=== PATIENT | female | born 1940 | race Caucasian/White ===

== ENCOUNTER 2017-10-07 13:10 | Inpatient (IN) | payer MEDICARE, OTHER ==
[2017-10-07 14:14] LABS: Troponin I 0.619 ng/mL (< 0.028)
[2017-10-07] MEDS ORDERED: Enoxaparin Sodium 80 MG/0.8 ML SYRINGE ONE (14:43)
--- NOTE | 2017-10-07 15:34 | HP ---
PRIMARY CARE PHYSICIAN: Dr. Ruma Reina. REASON FOR ADMISSION: Transfer from [facility] for non-ST elevation [place]. HISTORY OF PRESENT ILLNESS: A 77-year-old female who has underlying history of diabetes type 2, hypertension, and dyslipidemia who presented to [facility] Emergency Room with complaint of left upper extremity pain. She describes dull aching pain in left arm, 3 x 10 in intensity. It started last night before going to bed. She was able to sleep well. She did not have any chest pain, palpitation, nausea, vomiting, diaphoresis or shortness of breath. When this morning she woke up, she was still feeling achy pain in left arm. It was significant enough that is why she was concerned about and decided to check out and that is why she went to [facility] where she had elevated troponin. Subsequently, second set of troponin was significantly abnormal. The patient had normal EKG and patient was given aspirin and nitro paste. Here in our emergency room, patient is receiving Lovenox 1 mg per kg. Patient denies any exertional related chest pain, palpitation, dizziness, syncope. She denies any orthopnea, PND or leg swelling. She denies any constipation, diarrhea, melena or hematochezia. She denies any abdominal pain. She denies any UTI symptoms. She denies any similar problem in past. She denies any headache or focal motor or sensory symptoms. REVIEW OF SYSTEMS: The following complete review of systems was negative, unless otherwise mentioned in the HPI or below: Constitutional: Weight loss or gain, ability to conduct usual activities. Skin: Rash, itching. Eyes: Double vision, pain. ENT/Mouth: Nose bleeding, neck stiffness, pain, tenderness. Cardiovascular: Palpitations, dyspnea on exertion, orthopnea. Respiratory: Shortness of breath, wheezing, cough, hemoptysis, fever or night sweats. Gastrointestinal: Poor appetite, abdominal pain, heartburn, nausea, vomiting, constipation, or diarrhea. Genitourinary: Urgency, frequency, dysuria, nocturia. Musculoskeletal: Pain, swelling. Neurologic/Psychiatric: Anxiety, depression. Allergy/Immunologic: Skin rash, bleeding tendency. Please see my HPI for pertinent positive and negative. All other review of systems reviewed and negative except as mentioned in the HPI. PAST MEDICAL HISTORY: Diabetes type 2, hypertension, dyslipidemia, and migraine headache. PAST SURGICAL HISTORY: Colonoscopy. PAST PSYCHIATRIC HISTORY: Reviewed and negative. SOCIAL HISTORY: Patient is . She denies any tobacco, alcohol or illicit drug abuse. She lives alone by herself. FAMILY HISTORY: No strong family history of premature coronary artery disease, stroke or cancer. EMERGENCY ROOM COURSE: Patient was given aspirin, nitropatch at [facility]. Patient is receiving Lovenox 1 mg per kg in our emergency room. ALLERGIES: No known drug allergy. CURRENT HOME MEDICATIONS: Aspirin 81 mg p.o. daily, lisinopril 10 mg p.o. daily , metformin 500 mg p.o. twice daily, and Zocor 20 mg p.o. at bedtime. PHYSICAL EXAMINATION: VITAL SIGNS: Currently, blood pressure 156/100, pulse 68, respiratory rate 20, temperature 97.9, saturation 96% on room air, and weight 69 kilograms. GENERAL: Patient is currently alert, awake, no obvious acute distress. HEAD: Normocephalic, atraumatic. EYES: Pupils round, reactive to light. Extraocular muscle intact. ENT: Oropharynx within normal limits. Moist mucous membrane, no oral lesion, no pharyngeal erythema, no exudate. NECK: Supple, no JVD, no thyromegaly, no carotid bruit, no jugular venous distention. LUNGS: Clear to auscultation without any rhonchi or rales. CARDIAC: S1 and S2 regular. Systolic murmur present parasternally as well as aortic area. No gallop, no rub. ABDOMEN: Soft, bowel sounds present, nontender, nondistended. No organomegaly , no mass, no suprapubic tenderness. BACK: Examination unremarkable, no CVA tenderness. EXTREMITIES: Upper extremity; passive movements of all joints are normal. Lower extremities: No edema, no calf tenderness. Good distal pulsation. SKIN: No skin rash. HEMATOLOGICAL SYSTEM: No lymphadenopathy. PSYCHIATRIC: Normal affect. NEUROLOGIC: The patient is alert and oriented x3. Cranial nerves II-XII intact. Motor and sensation within normal limits. Reflexes bilaterally symmetrical. Plantar bilateral flexor. IMAGING DATA AND SIGNIFICANT LABORATORY DATA: 1. EKG showing normal sinus rhythm with left atrial enlargement. 2. Chest x-ray done at [facility] consistent with normal. 3. Blood tests done at [facility] reviewed. Troponin 0.44. BNP 96 , BUN 13, glucose 171, creatinine 0.79. Sodium 136, potassium 4.3, chloride 102 , carbon dioxide 26, calcium 9.8. 4. LFT: AST 17, ALT 9, alkaline phosphatase 65, total protein 7.2, albumin 4.0. 5. CBC: WBC 7.3, hemoglobin 13.4, platelet 203. ASSESSMENT AND PLAN/IMPRESSION: 1. Non-ST elevation myocardial infarction. This patient has atypical presentation. She has arm pain and significantly worsening troponin. She has several risk factors for coronary artery disease including diabetes, hypertension as well as dyslipidemia. At this point, the patient will require admission. We will keep on telemetry floor. We will treat with aspirin, Plavix , Lovenox 1 mg per kg. Cardiology will be consulted. Echocardiography will be obtained, nitropatch q.8 hourly. We will check lipid profile for risk stratification. Add metoprolol tartrate 25 mg po BID. 2. Diabetes type 2. We will hold on metformin. Patient will be planned for cardiac catheterization tomorrow and that is why we will continue insulin as per sliding scale per protocol. Diabetic diet will be given tonight and tomorrow morning we will keep her n.p.o. 3. Dyslipidemia. Continue Zocor 20 mg p.o. at bedtime and check lipid profile for risk stratification. 4. Hypertension. Continue lisinopril 10 mg p.o. daily. 5. Deep venous thrombosis prophylaxis. Patient is already on full dose of Lovenox therapy. 6. Gastrointestinal prophylaxis, Pepcid 20 mg p.o. b.i.d. 7. Code status: The patient is FULL CODE. Patient does not have any surrogate decision maker. 8. Murmur: we will get echo to see any structural or functional problem. Disposition plan based on clinical course. We are expecting patient's stay in hospital more than 2 midnights. Plan of care discussed with the patient in detail. GLORYD
[2017-10-07] MEDS ORDERED: Artificial Tear Sol 15 ML BOT EA EYE PRN (15:38)
[2017-10-07] MEDS ORDERED: Zolpidem Tartrate 5 MG TAB PO PRN (15:38)
[2017-10-07] MEDS ORDERED: Acetaminophen 325 MG TAB PO PRN (15:38)
[2017-10-07] MEDS ORDERED: HumaLOG 300 UNITS/3 ML VIAL SC PRN (15:38)
[2017-10-07] MEDS ORDERED: Eucerin (Mineral Oil/Petrolatum,White) 30 gm Jar TOP PRN (15:38)
[2017-10-07] MEDS ORDERED: Ondansetron HCl/PF 4 MG/2 ML Vial IVP PRN (15:38)
[2017-10-07] MEDS ORDERED: Loratadine 10 MG TAB PO PRN (15:38)
[2017-10-07] MEDS ORDERED: Sodium Chloride 0.65% Nasal 44 ML BOT EA NARE PRN (15:38)
[2017-10-07] MEDS ORDERED: Nitroglycerin 0.4 MG TAB (25 Tab Bottle) PO PRN (15:38)
[2017-10-07] MEDS ORDERED: Chloraseptic Spray 180 ml Bottle PO PRN (15:38)
[2017-10-07] MEDS ORDERED: Mag-Al 1200 mg/1200 mg/30 ML UDCUP PO PRN (15:38)
[2017-10-07] MEDS ORDERED: Dextrose 50% Abboject 50 ML SYRINGE SLOW IVP PRN (15:38)
[2017-10-07] MEDS ORDERED: hydrALAZINE 20 MG/ML VIAL SLOW IVP PRN (15:38)
[2017-10-07] MEDS ORDERED: Loperamide HCl 2 MG CAP PO PRN (15:38)
[2017-10-07] MEDS ORDERED: Senokot 8.6 MG TAB PO PRN (15:38)
[2017-10-07] MEDS ORDERED: Diabetic Tussin 200 MG/10 ML UDCUP PO PRN (15:38)
[2017-10-07] MEDS ORDERED: Dextrose 5% in Water 1,000 ML IV PRN (15:38)
[2017-10-07] MEDS ORDERED: HYDROcodone/Acetaminophen 5/325 mg Tablet PO PRN (15:38)
[2017-10-07] MEDS ORDERED: Milk Of Magnesia 30 ML UDCUP PO PRN (15:38)
[2017-10-07] MEDS ORDERED: Ondansetron ODT 4 MG TAB PO PRN (15:38)
[2017-10-07] MEDS: HumaLOG 300 UNITS/3 ML VIAL SC PRN (16:42)
[2017-10-07 16:57] LABS: Troponin I 0.996 ng/mL (< 0.028)
[2017-10-07 17:13] LABS: Bilirubin Negative (Negative); Blood, Urine Moderate (Negative); Clarity CLOUDY (Clear); Glucose, Urine (Dipstick) Negative (Negative); Leukocyte Trace (Negative); Nitrite Negative (Negative); Protein, Urine (Dipstick) Trace mg/dL (Neg-Trace); Specific Gravity, Urine 1.018 (1.002-1.036); Urobilinogen 0.2 mg/dL (0.2-1.0); pH, Urine 5.5 (5.0-9.0)
[2017-10-07 17:16] LABS: Bacteria/HPF 4+ HPF (None Seen); Hyaline Casts/LPF 0-3 HYALINE CAST LPF (0-3 Hyaline); Pathc Cast-AUWi Flag 0.29 (0-2.49); Squamous Epithelial 0-3 HPF (0-3)
[2017-10-07] MEDS ORDERED: Communication Order-Pharmacy FS SCH (18:00)
[2017-10-07 18:06] LABS: Anion Gap 17 mmol/L (10-20); BUN (Urea Nitrogen) 13 mg/dL (9.8-20.1); Calc. Creatinine Clearance 64 mL/min (70-130); Calcium 9.9 mg/dL (7.8-10.44); Carbon Dioxide 20 mmol/L (23-31); Chloride 101 mmol/L (98-107); Estimated GFR-MDRD 73; Glucose 187 mg/dL (83-110); Potassium 4.3 mmol/L (3.5-5.1); Sodium 134 mmol/L (136-145)
[2017-10-07] MEDS: Famotidine 20 MG TAB PO SCH (20:33)
[2017-10-07] MEDS: Atorvastatin Calcium 10 MG TAB PO SCH (20:34)
[2017-10-07] MEDS: Metoprolol Tartrate 25 MG TAB PO SCH (20:34)
[2017-10-07 20:45] LABS: Troponin I 1.403 ng/mL (< 0.028)
[2017-10-07] MEDS ORDERED: Enoxaparin Sodium 80 MG/0.8 ML SYRINGE SC SCH (21:00)
[2017-10-07] MEDS ORDERED: Prevnar 13-Val Conj/PF 0.5 ML SYRINGE IM ONE (21:00)
[2017-10-07] MEDS: Nitroglycerin 2% Ointment 1 INCH/1 GM Packet TOP SCH (23:00)
--- NOTE | 2017-10-08 00:31 | CON ---
DATE OF CONSULTATION: 10/07/2017 DATE OF ADMISSION: 10/07/2017 INDICATION FOR CONSULTATION: This is a 77-year-old female who has abnormal cardiac enzymes. She has had some difficulties recently with some left arm achiness. She awoke early this morning or last ni ght after having pain 3/10 with some left arm pain. She lives alone and states she needs to get it c hecked out at the hospital, so she presented to the emergency room and workup indicates that she had a troponin I of 0.44 and is now increased all the way to 0.996. Her BNP was 96. She has no previous cardiac history that she is aware of. She does have hypertension, hypercholesterolemia, and diabete s; however, for risk factors, she has had similar pains in the last 6 months, so they always occur at night. They are not associated with activity. PAST MEDICAL HISTORY: Significant for ischemic colitis as well as hypertension, hypercholesterolemia , and diabetes. SOCIAL HISTORY: She is a . She has 2 children, 2 male children that are alive and well without cardiac problems. She has no alcohol or tobacco abuse. She lives alone. FAMILY HISTORY: Noncontributory. MEDICATIONS AT HOME: Included aspirin, lisinopril 10 mg a day, metformin 500 mg b.i.d., and Zocor 20 mg a day. In the hospital, she was given aspirin, nitroglycerin, and Lovenox. ALLERGIES: None. REVIEW OF SYSTEMS: She wears glasses, has headaches, has some dysphagia. Otherwise, 12-point review of systems unremarkable except what was noted in the history of present illness. PHYSICAL EXAMINATION: GENERAL: Reveals a well-developed, well-nourished female. VITAL SIGNS: Blood pressure 160/72, heart rate is 62 and regular. She is afebrile, respiratory rate 16. HEENT: Shows the head to be normocephalic and atraumatic. Carotid pulses are present. There were n o bruits. There is no JVD. The thyroid is not enlarged. Oral mucosa was pink and moist. CHEST: Clear to auscultation. There were no rales, rhonchi or wheezing. CARDIOVASCULAR: Exam reveals a regular rate and rhythm, normal S1, S2. There is no S3, S4. There w ere no significant murmurs, heaves, thrills, bruits or rubs. ABDOMEN: Soft and nontender with positive bowel sounds. No organomegaly or masses are noted. Femor al pulses are present. EXTREMITIES: Show no clubbing, cyanosis or edema. Pedal pulses are present. Extremities otherwise are unremarkable. SKIN: Warm and dry. DATABASE: Her EKG shows a normal sinus rhythm, no acute changes, but she does have some peaking of t he T waves. LABORATORY DATA: As noted above. Her creatinine is 0.85. Hemoglobin was 13.4. IMPRESSION: 1. Non-ST segment elevation myocardial infarction with slight elevation of cardiac enzymes with some risk factors of coronary artery disease and certainly an atypical presentation with pain only at res t. We will plan for cardiac catheterization tomorrow. I did explain the procedure and risks to her to include bleeding, infection, possibly a myocardial infarction, cerebrovascular accident, renal ins ufficiency, allergic contrast reaction, and the possibility of . She understands and agrees to proceed. We will plan for cardiac catheterization tomorrow. 2. Diabetes, will be dealt with by the primary care service, appears to be under good control at thi s time. 3. Hypertension. This is slightly elevated. We will address the medications and to control this. 4. Hypercholesterolemia. Would continue her Zocor at this time. Otherwise, she is stable at this t josé and there is no indication that we need to proceed with urgent cardiac catheterization. She is c omfortable and has no discomfort at this time.
[2017-10-08] MEDS: Metoprolol Tartrate 25 MG TAB PO SCH ×2 (05:40→22:30)
[2017-10-08] MEDS: Lisinopril 10 MG TAB PO SCH (05:40)
[2017-10-08] MEDS: Famotidine 20 MG TAB PO SCH ×2 (05:41→22:30)
[2017-10-08] MEDS: Nitroglycerin 2% Ointment 1 INCH/1 GM Packet TOP SCH ×3 (05:45→22:34)
[2017-10-08 06:40] LABS: #Basophils 0.1 thou/uL (0.0-0.2); #Eosinphils 0.1 thou/uL (0.0-0.7); #Lymphocytes 1.2 thou/uL (1.20-3.40); #Monocytes 0.6 thou/uL (0.11-0.59); #Neutrophils 6.3 thou/uL (1.40-6.50); %Basophils 0.8 % (0.0-1.0); %Eosinophils 1.4 % (0.0-10.0); %Lymphocytes 14.2 % (21.0-51.0); %Monocytes 6.9 % (0.0-10.0); %Neutrophils 76.7 % (42.0-75.0); Hemoglobin 13.7 g/dL (12.0-16.0); Mean Corpuscular HGB CONC 35.7 g/dL (32.0-36.0); Mean Corpuscular Hemoglobin 32.8 pg (27.0-31.0); Mean Corpuscular Volume 92.1 fl (81.0-99.0); Mean Platelet Volume 8.4 fL (7.4-10.4); Platelet Count 204 thou/uL (130-400); RBC Distribution Width 11.8 % (11.5-14.5); Red Blood Cell (RBC) Count 4.17 mill/uL (4.20-5.40); White Blood Cell (WBC) Count 8.2 thou/uL (4.8-10.8)
[2017-10-08] MEDS ORDERED: cefTRIAXone\\ROCEPHIN 1 GM in Sodium Chloride 0.9% 100 ML IVPB SCH (06:45)
[2017-10-08 06:52] LABS: ALT (SGPT) 7 U/L (8-55); AST (SGOT) 28 U/L (5-34); Albumin 3.9 g/dL (3.4-4.8); Alkaline Phosphatase 63 U/L (40-150); Anion Gap 15 mmol/L (10-20); BUN (Urea Nitrogen) 14 mg/dL (9.8-20.1); Bilirubin, Total 0.6 mg/dL (0.2-1.2); Calc. Creatinine Clearance 65 mL/min (70-130); Calcium 9.7 mg/dL (7.8-10.44); Carbon Dioxide 21 mmol/L (23-31); Cardiac Risk 5.9 (Less than 4.5); Chloride 103 mmol/L (98-107); Cholesterol 212 mg/dl (< 200 Desired); Estimated GFR-MDRD 68; Glucose 176 mg/dL (83-110); HDL Cholesterol 36 mg/dL (>60 Neg Risk); LDL Cholesterol, Calculated 139 mg/dL; Potassium 4.1 mmol/L (3.5-5.1); Protein, Total 6.9 g/dL (6.0-8.3); Sodium 135 mmol/L (136-145); Triglycerides 184 mg/dL (Less than 150)
[2017-10-08] MEDS: cefTRIAXone\\ROCEPHIN 1 GM, Syringe 0.4 ML in Sterile Water 9.6 ML SLOW IVP SCH (08:00)
[2017-10-08] MEDS ORDERED: Clopidogrel Bisulfate 75 MG TAB PO SCH (09:00)
[2017-10-08] MEDS ORDERED: Aspirin 325 MG TAB PO SCH (09:00)
[2017-10-08] MEDS ORDERED: Lidocaine 1% (PF) 30 ML VIAL ONE (09:53)
[2017-10-08] MEDS ORDERED: Nitroglycerin 100MG/250ML BOT 250 ML ONE (10:06)
[2017-10-08] MEDS ORDERED: Verapamil 5 MG/2 ML VIAL ONE (10:06)
[2017-10-08] MEDS ORDERED: Heparin 10,000 UNITS/1 ML VIAL ONE (10:06)
[2017-10-08] MEDS ORDERED: Midazolam HCl 2 mg/2 ml Vial ONE (10:27)
[2017-10-08] MEDS ORDERED: Sodium Chloride 0.9% 200 ML IV SCH (11:25)
[2017-10-08] MEDS ORDERED: Nitroglycerin 0.4 MG TAB (25 Tab Bottle) SL PRN (11:25)
[2017-10-08] MEDS ORDERED: Acetaminophen/Codeine 30-300mg Tablet PO PRN ×2 (11:25)
[2017-10-08] MEDS ORDERED: traMADol HCl 50 MG TAB PO PRN (11:25)
[2017-10-08] MEDS ORDERED: Iopamidol 370 76% 100 ML VIAL ONE (11:35)
--- NOTE | 2017-10-08 13:27 | PDOC.PN ---
- Subjective Encounter Start Date: 10/08/17 Encounter Start Time: 13:25 -: old records requested/rev Patient seen and examined for NSTEMI. No new complaints. Noted overnight events - Objective Resuscitation Status: Resuscitation Status FULL:Full Resuscitation MAR Reviewed: Yes Vital Signs & Weight: Vital Signs (12 hours) Temp Pulse Resp BP BP Pulse Ox 10/08/17 12:52 99 191/80 H 10/08/17 08:00 98.0 F 99 22 H 161/85 H 99 10/08/17 05:40 163/71 H 10/08/17 04:00 98.1 F 60 16 163/71 H 96 Weight Weight 160 lb I&O: 10/07/17 10/08/17 10/09/17 06:59 06:59 06:59 Intake Total 480 Output Total 150 Balance 330 Result Diagrams: 10/08/17 06:25 10/08/17 06:25 Additional Labs: Accuchecks 10/08/17 10/07/17 10/07/17 06:22 22:48 16:19 POC Glucose 173 H 198 H 187 H Radiology Reviewed by me: Yes EKG Reviewed by me: Yes (nsr) Phys Exam - Physical Examination Constitutional: NAD HEENT: PERRLA, moist MMs, sclera anicteric Neck: no JVD, supple Respiratory: no wheezing, no rales, no rhonchi Cardiovascular: RRR, no rub SM+ Gastrointestinal: soft, non-tender, no distention, positive bowel sounds Musculoskeletal: no edema, pulses present Neurological: non-focal, normal sensation, moves all 4 limbs Psychiatric: normal affect, A&O x 3 Skin: no rash, normal turgor Dx/Plan (1) NSTEMI (non-ST elevated myocardial infarction) Code(s): I21.4 - NON-ST ELEVATION (NSTEMI) MYOCARDIAL INFARCTION Status: Acute (2) UTI (urinary tract infection) Status: Acute (3) Diabetes type 2, controlled Code(s): E11.9 - TYPE 2 DIABETES MELLITUS WITHOUT COMPLICATIONS Status: Chronic (4) Dyslipidemia Code(s): E78.5 - HYPERLIPIDEMIA, UNSPECIFIED Status: Chronic (5) Hypertension Code(s): I10 - ESSENTIAL (PRIMARY) HYPERTENSION Status: Chronic - Plan cont current plan of care, continue antibiotics * s/p cardiac cath * echo pending * continue current optimum medical therapy * she will need CABG * pt will decide today * rocephin started for UTI * send urine culture * medication reviewed as below * symptomatic treatment. Review of Systems - Review of Systems Eyes: negative: Pain, Vision Change, Conjunctivae Inflammation, Eyelid Inflammation, Redness, Other ENT: negative: Ear Pain, Ear Discharge, Nose Pain, Nose Discharge, Nose Congestion, Mouth Pain, Mouth Swelling, Throat Pain, Throat Swelling, Other Respiratory: negative: Cough, Dry, Shortness of Breath, Hemoptysis, SOB with Excertion, Pleuritic Pain, Sputum, Wheezing Cardiovascular: negative: chest pain, palpitations, orthopnea, paroxysmal nocturnal dyspnea, edema, light headedness, other Gastrointestinal: negative: Nausea, Vomiting, Abdominal Pain, Diarrhea, Constipation, Melena, Hematochezia, Other Genitourinary: negative: Dysuria, Frequency, Incontinence, Hematuria, Retention , Other Musculoskeletal: negative: Neck Pain, Shoulder Pain, Arm Pain, Back Pain, Hand Pain, Leg Pain, Foot Pain, Other Skin: negative: Rash, Lesions, Barber, Bruising, Other - Medications/Allergies Allergies/Adverse Reactions: Allergies Allergy/AdvReac Type Severity Reaction Status Date / Time No Known Drug Allergies Allergy Verified 10/07/17 16:09 Medications: Current Medications Acetaminophen (Tylenol) 650 mg PO Q4H PRN PRN Reason: Headache/Fever or Pain Acetaminophen/Codeine Phosphate (Tylenol #3) 1 tab PO Q4H PRN PRN Reason: Mild Pain (1-3) Acetaminophen/Codeine Phosphate (Tylenol #3) 2 tab PO Q4H PRN PRN Reason: Moderate Pain (4-6) Hydrocodone Bitart/Acetaminophen ([place] 5/325) 1 tab PO Q4H PRN PRN Reason: Moderate Pain (4-6) Al Hydroxide/Mg Hydroxide (Maalox) 30 ml PO Q6H PRN PRN Reason: Heartburn or Indigestion Artificial Tears (Tears Renewed 15ml Bottle) 0 drop EA EYE PRN PRN PRN Reason: Dry Eyes Aspirin (Aspirin) 325 mg PO DAILY [facility] Last Admin: 10/08/17 05:40 Dose: 325 mg Atorvastatin Calcium (Lipitor) 10 mg PO HS KAMRYN Last Admin: 10/07/17 20:34 Dose: 10 mg Dextrose/Water (Dextrose 50%) 25 gm SLOW IVP PRN PRN PRN Reason: Hypoglycemia Famotidine (Pepcid) 20 mg PO BID [facility] Last Admin: 10/08/17 05:41 Dose: 20 mg Glucagon (Glucagon) 1 mg IM PRN PRN PRN Reason: Hypoglycemia Guaifenesin (Robitussin Sf) 200 mg PO Q4H PRN PRN Reason: Cough Hydralazine HCl (Apresoline) 10 mg SLOW IVP Q4H PRN PRN Reason: Systolic BP > 180 Last Admin: 10/08/17 12:52 Dose: 10 mg Dextrose/Water (D5w) 1,000 mls @ 0 mls/hr IV .Q0M PRN; As Directed PRN Reason: Hypoglycemia Ceftriaxone Sodium 1 gm/ (Syringe 0.4 ml/ Sterile Water) 10 mls @ 120 mls/hr SLOW IVP 0800 [facility] Last Admin: 10/08/17 08:00 Dose: 10 mls Sodium Chloride (Normal Saline 0.9%) 200 mls @ 0 mls/hr IV ONE [facility] PRN Reason: As Directed Stop: 10/09/17 11:26 Insulin Human Lispro (Humalog) 0 units SC .MODERATE SLIDING SC PRN PRN Reason: Moderate Correctional Scale Last Admin: 10/07/17 16:42 Dose: 2 unit Insulin Human Lispro (Humalog) 0 units SC .BEDTIME SLIDING SC PRN PRN Reason: Bedtime Correctional Scale Lisinopril (Zestril) 10 mg PO DAILY [facility] Last Admin: 10/08/17 05:40 Dose: 10 mg Loperamide HCl (Imodium) 2 mg PO PRN PRN PRN Reason: Diarrhea/Loose Stools Loratadine (Claritin) 10 mg PO DAILYPRN PRN PRN Reason: Sinus Symptoms Magnesium Hydroxide (Milk Of Magnesium) 30 ml PO DAILYPRN PRN PRN Reason: Constipation Metoprolol Tartrate (Lopressor) 25 mg PO BID [facility] Last Admin: 10/08/17 05:40 Dose: 25 mg Mineral Oil/White Petrolatum (Eucerin Cream) 0 gm TOP BIDPRN PRN PRN Reason: Dry Skin Nitroglycerin (Nitro-Bid 2% Ointment) 0.5 inch TOP Q8HR [facility] Last Admin: 10/08/17 12:53 Dose: 0.5 inch Nitroglycerin (Nitrostat) 0.4 mg PO Q5MIN PRN PRN Reason: Chest Pain Nitroglycerin (Nitrostat) 0.4 mg SL Q5MIN PRN PRN Reason: Chest Pain Ondansetron HCl (Zofran Odt) 4 mg PO Q6H PRN PRN Reason: Nausea/Vomiting Ondansetron HCl (Zofran) 4 mg IVP Q6H PRN PRN Reason: Nausea/Vomiting Phenol (Chloraseptic [place] 180 Ml Bot) 0 ml PO PRN PRN PRN Reason: Sore Throat Senna (Senokot) 2 tab PO HSPRN PRN PRN Reason: Constipation Sodium Chloride ([place] Nasal [place] 0.65%) 0 ml EA NARE QIDPRN PRN PRN Reason: Nasal Congestion Tramadol HCl (Ultram) 50 mg PO Q6H PRN PRN Reason: Moderate Pain (4-6) Zolpidem Tartrate (Ambien) 5 mg PO HSPRN PRN PRN Reason: Insomnia
--- NOTE | 2017-10-08 15:09 | RAD ---
PORTABLE CHEST 1 VIEW: Date: 10/08/17 Time: 1345 hours HISTORY: Preoperative evaluation for CABG. Coronary artery disease. FINDINGS: The heart size is normal. The aorta is tortuous. The lungs are expanded without focal areas of consol idation, pneumothorax, or pleural effusions. IMPRESSION: No radiographic evidence of acute cardiopulmonary process. POS: [facility]
--- NOTE | 2017-10-08 16:39 | CT ---
CT OF THE BRAIN WITHOUT CONTRAST 10/08/17 HISTORY: Stroke alert, left sided weakness, slurred speech. Patient had heart cath today. FINDINGS: No evidence of acute infarct, hemorrhage, midline shift or abnormal extra-axial fluid collections are seen. There is an old lacunar infarct in the right basal ganglia. There are patchy areas of diffuse attenuation in the periventricular white matter consistent with chronic small vessel ischemic disease . The bony calvarium is intact. There is mucosal disease in the left maxillary sinus. IMPRESSION: No CT evidence of acute intracranial process. Findings are reported over the telephone to Dr. Juventino Figueroa at 4:23 p.m. POS: [facility]
[2017-10-08 16:49] LABS: INR-International Normal Ratio 1.1; PTT 30.6 SEC (22.9-36.1)
--- NOTE | 2017-10-08 17:05 | CT ---
CTA OF THE HEAD WITH IV CONTRAST AND 3D REFORMATTED IMAGING CTA OF THE NECK UTILIZING IV CONTRAST AND 3D REFORMATTED IMAGING 10/08/17 COMPARISON: CT of the brain without contrast dated 10/08/17. INDICATION: History of stroke protocol stroke alert for left sided weakness and slurred speech with a history of a heart cath this morning at 11 a.m. FINDINGS: CTA OF THE NECK: There is mild vascular calcifications involving the origins of the great vessels of the neck. The right common carotid artery appears widely patent. There is some mild vascular calcifications inv olving the right carotid bulb. The right internal carotid artery appears patent throughout its cervic al course. There is some mild atherosclerotic irregularity seen involving the precavernous and cavern ous right ICA. The supraclinoid ICA is patent. The left common carotid artery origin are widely patent. There are moderate calcifications involving the left carotid bulb and proximal left internal carotid artery with moderate stenosis. There is 50% luminal caliber narrowing involving the proximal left ICA. The remaining cervical course of the left ICA is widely patent. The petrous, precavernous, cavernous and supraclinoid segments of the left ICA are patent. The left vertebral artery is diminutive throughout its entire course. The right vertebral artery is w idely patent at this origin through its cervical course. The right vertebral artery intracranial cour se is widely patent. The visualized aerodigestive tract appears within normal limits. The thyroid, submandibular, and paro tid glands appear within normal limits. The visualized lung apices appear clear. There is scattered degenerative and osteoarthritic change. 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 There is mucosal thickening within the left maxillary sinus. CTA OF THE HEAD: No hemodynamically significant stenosis, occlusion, or aneurysmal dilatation seen involving the VAL, MCA and u.s. commissioner. Left vertebral artery is diminutive. There are mild vascular calcifications involving t he cavernous carotids bilaterally. No abnormal enhancement is evident. No midline shift is demonstrat ed. IMPRESSION: 1. No hemodynamically significant stenosis, occlusion or aneurysmal formation demonstrated. Findings were called to Dr. Figueroa at 4:45 p.m. on 10/08/17. 2. Moderate luminal caliber narrowing involving the proximal left internal carotid artery. 3. 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 POS: [facility]
[2017-10-08 17:36] LABS: CKMB 6.8 ng/mL (0-6.6); Troponin I 1.371 ng/mL (< 0.028)
--- NOTE | 2017-10-08 18:17 | PRG ---
DATE OF SERVICE: 10/08/2017 CRITICAL CARE PROGRESS NOTE SUBJECTIVE: This patient was admitted yesterday for non-ST elevation [place]. The patient was treated medically and her last dose of Lovenox was last night. This morning, the patient had a cardiac catheterization through right radial approach and the patient was found with 3-vessel CAD. I saw this patient early in the morning and subsequently another time at 2:00 p.m., I saw this patient; at that time, patient was perfectly fine before and after immediately cardiac catheterization. Patient's family member, [id number] visited her at that time, she also noticed that she was perfectly fine at 3:45 p.m. but immediately after the patient's condition deteriorated, she was having difficulty speaking. Her right side of face had asymmetry and she acutely got confused and she was having predominantly on the right-sided weakness. CECILIA NILS was called immediately. I attended this patient at bedside and examined. Neuro examination was done. It was noted that her NIH score was about 10. The patient was having difficulty talking and patient appeared confused with right- sided weakness. Her blood sugar was normal. OBJECTIVE: VITAL SIGNS: Temperature 98.0, pulse 77, respiratory rate 18, saturation 100% on room air, blood pressure 117/59, weight 160 pounds. GENERAL: The patient is confused. She has a facial drooping on the right side. She has more weakness on the right side. HEAD: Normocephalic, atraumatic. EYES: Pupils round, reactive to light. ENT: Oropharynx within normal limits. NECK: Supple. No JVD, no thyromegaly, no carotid bruit. LUNGS: Clear to auscultation without any rhonchi or rales. CARDIAC: S1, S2 appears regular with a soft systolic murmur noted, no gallop, no rub. ABDOMEN: Soft and benign without any tenderness. EXTREMITIES: No edema. NEUROLOGIC: The patient is confused. She does have right-sided weakness. She does have facial drooping on the right side. She does have expressive aphasia. Her NIH score is 10. Lab and radiological investigation reviewed. ASSESSMENT AND PLAN: 1. Acute cerebrovascular accident. The patient does have acute CVA, suspecting embolic phenomena versus ischemic. At this point, we have discontinued nitro patch given relatively low blood pressure. We did immediately CT brain and CT brain came back negative. I spoke with Dr. Wooten and reported as normal. Subsequently, we decided to do CT lower [place] angiography and that also reported as normal without any major blood vessel occlusion or stenosis. I spoke with Dr. Gregory about TPA indication and this patient was meeting criteria for TPA. Right radial approach cardiac catheterization was not absolute contraindication, but we need to monitor very closely. I also spoke with Dr. Srivastava and altogether, we decided to go for TPA. Advantage and disadvantage of TPA discussed. We will transfer her to CCU. Post- TPA orders initiated. The patient will be closely monitored in CCU. We will hold on aspirin and other antiplatelet or anticoagulant therapy for 24 hours after TPA. We will closely monitor neurologically and will consult stroke team including Neurology. Tomorrow, we will repeat MRI brain, carotid Doppler. I spoke with the patient's family member, [id number] and updated about condition. 2. Coronary artery disease. The patient is found with a 3-vessel coronary artery disease. Cardiovascular surgeon was consulted. The patient is thinking about going for coronary artery bypass grafting. At this point given acute neurological insult, we will defer the decision to the surgeon as well as Neurology and primary cap cutter. 3. Hypertension. 3. Diabetes. All problems are currently stable. Total time spent providing critical care to this patient is more than 30 minutes including discussion with him various consultants and family members and examination of this patient. TRUDY
[2017-10-08] MEDS ORDERED: Lorazepam 2 MG/ML VIAL SLOW IVP PRN (19:34)
[2017-10-08] MEDS ORDERED: ISOVUE-370 76%-LOCM 1 ML ONE (20:21)
--- NOTE | 2017-10-08 20:53 | CT ---
BRAIN CT WITHOUT IV CONTRAST: 10/08/17 HISTORY: 77-year-old female with history of post TPA for stroke. There is a 0.6 cm diameter small intraparenchymal hemorrhagic focus in the right basal ganglia. There is some residual contrast within the vasculature of the brain. There are some very tiny punctate foc i of increased density in the right and left posterior parietal cortical regions. I am not certain wh ether these represent some tiny areas of enhancement or whether these could represent some tiny hemor rhagic foci as well. There is certainly no mass or midline shift. No extra-axial hemorrhage. IMPRESSION: Definite small intraparenchymal hemorrhage in the right basal ganglia without significant mass effect . Several bilateral tiny cortical foci of minimal increased attenuation density, these are less certa in in origin and could potentially represent tiny hemorrhagic foci or could represent some tiny areas of enhancement. Followup brain CTs and consider followup brain MRI as well. This was discussed with Jason, the patient's nurse at 8:13 p.m. Susu LOMAX POS: LEW
--- NOTE | 2017-10-08 21:33 | CON ---
DATE OF CONSULTATION: 10/08/2017 DATE OF ADMISSION: 10/07/2017 ATTENDING PHYSICIAN: Socorro Srivastava MD CONSULTING PHYSICIAN: Socorro Srivastava MD REASON FOR CONSULTATION: Evaluate the patient for coronary artery bypass grafting. HISTORY OF PRESENT ILLNESS: Ms. Alvarez is a 77-year-old woman who was admitted with [id number] myocardial infarction. She has no previous cardiac history. She has no history of aneurysm or cereb rovascular disease. She has no peripheral vascular history. She was brought in with left arm pain. Enzymes were positive and she was referred to Dr. Srivastava. She underwent usual laboratory workup, whic h showed a troponin I peak of 0.996. BNP was 96 at admission. She was taken to the cardiac catheter ization lab today and found to have severe 3-vessel disease. Ejection fraction was approximately 60% on echocardiogram. There is no significant valvular disease on echocardiogram. I have been asked t o see her to discuss coronary artery bypass grafting. PAST MEDICAL HISTORY: 1. Hypertension. 2. Hypercholesterolemia. 3. Diabetes mellitus. 4. Ischemic colitis. PAST SURGICAL HISTORY: None. CURRENT MEDICATIONS: 1. Aspirin 81 mg daily. 2. Lisinopril 10 mg daily. 3. Metformin 500 mg b.i.d. 4. Zocor 20 mg at bedtime. ALLERGIES: None. SOCIAL HISTORY: She does not use tobacco or alcohol. She is a . She lives alone in [place]. REVIEW OF SYSTEMS: Ten-point review of systems was performed and is negative except as above. PHYSICAL EXAMINATION: GENERAL: This is an elderly woman resting comfortably in bed without chest pain or shortness of sanaz th. VITAL SIGNS: Height 5 feet 5 inches, weight 160 pounds, BSA is 1.8. Temperature is 98, pulse is 99 and regular, blood pressure is 191/80. HEENT: Sclerae nonicteric. Pupils equal, round bilaterally. NECK: Supple. There are no carotid bruits. CHEST: Clear to auscultation and percussion bilaterally. ABDOMEN: Soft and nontender without mass. EXTREMITIES: No cyanosis, clubbing, or edema. She has a radial band on her right radial artery. VASCULAR: She has palpable carotid, radial, femoral, and dorsalis pedis pulses bilaterally. VENOUS: There are no venous varicosities or venous stasis changes. She has no history of previous v enous procedures. PSYCHIATRIC: The patient is awake; alert; and oriented to person, place, and time. Chest x-ray shows no dominant lung mass and good bilaterally expanded lungs. LABORATORY DATA: Hemoglobin is 13.7, platelet count is 204,000. Creatinine is 0.81, potassium is 4. 1. Peak troponin I is 1.403. ASSESSMENT AND PLAN: This is a very pleasant 77-year-old woman with severe 3-vessel disease on coron isaías angiography. She presented with [id number] myocardial infarction. Risks, benefits, and op tions of coronary artery bypass grafting had been discussed with her. Potential targets including LA D, diagonal, OM, and PDA. Plan for surgery early next week.
[2017-10-08] MEDS: Atorvastatin Calcium 10 MG TAB PO SCH (22:30)
[2017-10-08] MEDS ORDERED: Metoprolol Tartrate 5 MG/5 ML VIAL IVP PRN (22:32)
[2017-10-09] MEDS: HumaLOG 300 UNITS/3 ML VIAL SC PRN ×2 (06:09→17:00)
[2017-10-09] MEDS: Nitroglycerin 2% Ointment 1 INCH/1 GM Packet TOP SCH ×3 (06:27→21:40)
[2017-10-09] MEDS: Famotidine 40 MG/4 ML VIAL SLOW IVP SCH ×2 (08:50→21:33)
[2017-10-09] MEDS: Metoprolol Tartrate 25 MG TAB PO SCH ×2 (08:50→20:55)
[2017-10-09] MEDS: Lisinopril 10 MG TAB PO SCH (08:50)
[2017-10-09] MEDS: cefTRIAXone\\ROCEPHIN 1 GM, Syringe 0.4 ML in Sterile Water 9.6 ML SLOW IVP SCH (08:50)
--- NOTE | 2017-10-09 10:33 | PDOC.PN ---
- Subjective Encounter Start Date: 10/09/17 Encounter Start Time: 09:40 pt is currently appear to be confused, able to tell her name but rest answer to other question are wrong Patient seen and examined for nstemi, cva. No overnight events - Objective Resuscitation Status: Resuscitation Status FULL:Full Resuscitation MAR Reviewed: Yes Vital Signs & Weight: Vital Signs (12 hours) Temp Pulse Resp BP Pulse Ox 10/09/17 08:50 191/80 H 10/09/17 08:00 98.1 F 116 H 21 H 98 10/09/17 06:57 99 10/09/17 04:00 98.1 F 10/09/17 00:00 97.7 F Weight Admit Weight 150 lb Weight 138 lb 14.259 oz Most Recent Monitor Data Heart Rate from ECG 109 NIBP 131/79 NIBP BP-Mean 100 Respiration from ECG 25 SpO2 98 I&O: 10/08/17 10/09/17 10/10/17 06:59 06:59 06:59 Intake Total 480 513 Output Total 150 7 200 Balance 330 506 -200 Result Diagrams: 10/08/17 06:25 10/08/17 06:25 Additional Labs: Accuchecks 10/09/17 10/08/17 10/08/17 06:03 21:07 16:06 POC Glucose 290 H 386 H 239 H EKG Reviewed by me: Yes (tachycardia) Phys Exam - Physical Examination Constitutional: NAD HEENT: PERRLA, moist MMs, sclera anicteric Neck: no JVD, supple Respiratory: no wheezing, no rales, no rhonchi Cardiovascular: RRR, no rub Gastrointestinal: soft, non-tender, no distention, positive bowel sounds Musculoskeletal: no edema, pulses present she is restless and confused Lymphatic: no nodes Skin: no rash, normal turgor Dx/Plan (1) CVA (cerebral vascular accident) Code(s): I63.9 - CEREBRAL INFARCTION, UNSPECIFIED Status: Acute (2) NSTEMI (non-ST elevated myocardial infarction) Code(s): I21.4 - NON-ST ELEVATION (NSTEMI) MYOCARDIAL INFARCTION Status: Acute (3) UTI (urinary tract infection) Status: Acute (4) Diabetes type 2, controlled Code(s): E11.9 - TYPE 2 DIABETES MELLITUS WITHOUT COMPLICATIONS Status: Chronic (5) Dyslipidemia Code(s): E78.5 - HYPERLIPIDEMIA, UNSPECIFIED Status: Chronic (6) Hypertension Code(s): I10 - ESSENTIAL (PRIMARY) HYPERTENSION Status: Chronic - Plan cont current plan of care, marlow catheter, continue antibiotics, PT/OT, social sciences lecturer, speech therapy * will get MRI brain * s/p TPA, overall stable and no complication * will start aspirin and lovenox for DVT prophylaxis tomorrow * medication reviewed as below * symptomatic treatment * stroke team evaluation. * change lipitor 40 mg po HS Review of Systems - Review of Systems Other: today unable to review as currently pt is confused and restless - Medications/Allergies Allergies/Adverse Reactions: Allergies Allergy/AdvReac Type Severity Reaction Status Date / Time No Known Drug Allergies Allergy Verified 10/07/17 16:09 Medications: Current Medications Acetaminophen (Tylenol) 650 mg PO Q4H PRN PRN Reason: Headache/Fever or Pain Hydrocodone Bitart/Acetaminophen ([place] 5/325) 1 tab PO Q4H PRN PRN Reason: Moderate Pain (4-6) Al Hydroxide/Mg Hydroxide (Maalox) 30 ml PO Q6H PRN PRN Reason: Heartburn or Indigestion Artificial Tears (Tears Renewed 15ml Bottle) 0 drop EA EYE PRN PRN PRN Reason: Dry Eyes Aspirin (Aspirin) 325 mg PO DAILY [facility] Atorvastatin Calcium (Lipitor) 40 mg PO [facility] Dextrose/Water (Dextrose 50%) 25 gm SLOW IVP PRN PRN PRN Reason: Hypoglycemia Famotidine (Pepcid) 20 mg SLOW IVP BID [facility] Last Admin: 10/09/17 08:50 Dose: 20 mg Glucagon (Glucagon) 1 mg IM PRN PRN PRN Reason: Hypoglycemia Guaifenesin (Robitussin Sf) 200 mg PO Q4H PRN PRN Reason: Cough Hydralazine HCl (Apresoline) 10 mg SLOW IVP Q4H PRN PRN Reason: Systolic BP > 180 Last Admin: 10/08/17 12:52 Dose: 10 mg Dextrose/Water (D5w) 1,000 mls @ 0 mls/hr IV .Q0M PRN; As Directed PRN Reason: Hypoglycemia Ceftriaxone Sodium 1 gm/ (Syringe 0.4 ml/ Sterile Water) 10 mls @ 120 mls/hr SLOW IVP 0800 [facility] Last Admin: 10/09/17 08:50 Dose: 10 mls Sodium Chloride (Normal Saline 0.9%) 200 mls @ 0 mls/hr IV ONE [facility] PRN Reason: As Directed Stop: 10/09/17 11:26 Insulin Human Lispro (Humalog) 0 units SC .MODERATE SLIDING SC PRN PRN Reason: Moderate Correctional Scale Last Admin: 10/09/17 06:09 Dose: 6 unit Insulin Human Lispro (Humalog) 0 units SC .BEDTIME SLIDING SC PRN PRN Reason: Bedtime Correctional Scale Last Admin: 10/08/17 21:12 Dose: 5 unit Lisinopril (Zestril) 10 mg PO DAILY [facility] Last Admin: 10/09/17 08:50 Dose: Not Given Loperamide HCl (Imodium) 2 mg PO PRN PRN PRN Reason: Diarrhea/Loose Stools Loratadine (Claritin) 10 mg PO DAILYPRN PRN PRN Reason: Sinus Symptoms Magnesium Hydroxide (Milk Of Magnesium) 30 ml PO DAILYPRN PRN PRN Reason: Constipation Metoprolol Tartrate (Lopressor) 25 mg PO BID [facility] Last Admin: 10/09/17 08:50 Dose: Not Given Metoprolol Tartrate (Lopressor) 5 mg IVP Q4H PRN PRN Reason: Hypertension Last Admin: 10/08/17 23:05 Dose: 5 mg Mineral Oil/White Petrolatum (Eucerin Cream) 0 gm TOP BIDPRN PRN PRN Reason: Dry Skin Nitroglycerin (Nitro-Bid 2% Ointment) 0.5 inch TOP Q8HR [facility] Last Admin: 10/09/17 06:27 Dose: 0.5 inch Nitroglycerin (Nitrostat) 0.4 mg SL Q5MIN PRN PRN Reason: Chest Pain Ondansetron HCl (Zofran Odt) 4 mg PO Q6H PRN PRN Reason: Nausea/Vomiting Ondansetron HCl (Zofran) 4 mg IVP Q6H PRN PRN Reason: Nausea/Vomiting Phenol (Chloraseptic [place] 180 Ml Bot) 0 ml PO PRN PRN PRN Reason: Sore Throat Senna (Senokot) 2 tab PO HSPRN PRN PRN Reason: Constipation Sodium Chloride ([place] Nasal [place] 0.65%) 0 ml EA NARE QIDPRN PRN PRN Reason: Nasal Congestion Sodium Chloride (Flush - Normal Saline) 10 ml IVF Q12HR [facility] Last Admin: 10/09/17 08:51 Dose: Not Given Sodium Chloride (Flush - Normal Saline) 10 ml IVF PRN PRN PRN Reason: Saline Flush Tramadol HCl (Ultram) 50 mg PO Q6H PRN PRN Reason: Moderate Pain (4-6) Zolpidem Tartrate (Ambien) 5 mg PO HSPRN PRN PRN Reason: Insomnia
--- NOTE | 2017-10-09 11:43 | PDOC.CTH ---
Cardiology Progress Note - Subjective She is somnolent since she had a dose of ativan overnight. She was verey agitated overnight. Currently she is arousable and able to tell me her name and where she is but goes back to sleep. She had a CVA yesterday and TPA was administered and now she had a small intraparenquimal bleed. - Objective Vital Signs Temp Pulse Resp BP Pulse Ox 10/09/17 08:50 191/80 H 10/09/17 08:00 98.1 F 116 H 21 H 98 10/09/17 06:57 99 10/09/17 04:00 98.1 F 10/09/17 00:00 97.7 F Admit Weight 150 lb Weight 138 lb 14.259 oz 10/08/17 10/09/17 10/10/17 06:59 06:59 06:59 Intake Total 480 513 Output Total 150 7 200 Balance 330 506 -200 - Physical Examination General/Neuro: NAD Neck: no JVD present Lungs: unlabored respirations Heart: RRR Abdomen: NT/ND Extremities: + edema B (trace) - Telemetry Telemetry Rhythm: NSR - Labs Result Diagrams: 10/08/17 06:25 10/08/17 06:25 Troponin/CKMB CK-MB (CK-2) 6.8 ng/mL (0-6.6) H* 10/08/17 16:38 Troponin I 1.371 ng/mL (< 0.028) H* 10/08/17 16:38 - Assessment/Plan 1. Severe multivessel CAD. 2. Acute CVA 3. S/P TPA 4. Hemorrhagic conversion of CVA. PLAN: - Continue Supportive care. - Will have to wait for CABG until Intra parenchymal hemorrhage resolved. - No antiplatelets or anticoagulants for now. - Continue Statins.
--- NOTE | 2017-10-09 16:48 | CON ---
DATE OF CONSULTATION: 10/09/2017 HISTORY OF PRESENT ILLNESS: Ms. Denae Alvarez is a 77-year-old female in the ICU, status post cardiac c atheterization, status post small intraparenchymal hemorrhage in the right basal ganglia. History is such that the patient presented to the hospital and was transferred from [facility], non-ST segment elevation myocardial infarction. She was taken to cardiac catheterization and was found to have severe 3-vessel disease. She was sche duled to have apparently bypass surgery when she developed an acute cerebrovascular event. PAST MEDICAL HISTORY: Pertinent for hyperlipidemia, hypertension, history of migraine headaches, his tory of diabetes. A code green was called and stroke alert was initiated and was transferred to the ICU last night. A repeat CT of the head was done this morning as noted. CHRONIC MEDICATIONS: 1. Metformin 500 twice a day. 2. Simvastatin 20. 3. Aspirin 81. 4. Amlodipine 5. PAST SURGICAL HISTORY: Otherwise included a recent catheterization. Otherwise, unremarkable. SOCIAL AND FAMILY HISTORY: No alcohol or tobacco use. PHYSICAL EXAMINATION: GENERAL: Unfortunately, she is somewhat encephalopathic, but appears to be in no distress. VITAL SIGNS: Sats are 98% room air, pulse 109, and blood pressure . CHEST: Decreased breath sounds without any wheezing. CARDIAC: Normal S1 and S2, no gallops. ABDOMEN: Soft. No masses. LABORATORY DATA AND X-RAY FINDINGS: Chest x-ray was normal. Glucose 290. White count 8000, H&H ___ __, platelet count 204. IMPRESSION: 1. Status post right basal ganglia hemorrhage. 2. Coronary artery disease. 3. Diabetes. 4. Hypertension. 5. Non-smoker. PLAN: Continue observation in the ICU. Await input from Neurology. Supportive care. We will follow while in the ICU. Seventy minutes of which 50% of time spent in direct patient care.
[2017-10-09 18:12] LABS: Hemoglobin A1c 6.2 % (4.0-6.0)
--- NOTE | 2017-10-09 18:15 | CON ---
DATE OF CONSULTATION: 10/09/2017 CONSULTING PHYSICIAN: Hospitalist Service. IMPRESSION: 1. Probable right middle cerebral artery stroke. 2. Secondary small intracerebral hemorrhages, following TPA. 3. Diabetes. 4. Hypertension. 5. Hyperlipidemia. 6. Coronary artery disease. PLAN: 1. Carotid ultrasound. 2. Follow up MRI. 3. Start antiplatelet therapy after the 24-hour window has . HISTORY OF PRESENT ILLNESS: Ms. Alvarez is a 77-year-old white female, who is being evaluated for poss ible bypass surgery. She apparently developed neurologic deficits last night. She had an initial CT scan of the brain, which did not show any evidence of hemorrhage. She was given TPA in the room. S he had a followup CT, which shows some small areas of hemorrhage involving the right subcortical fron cami region and bilateral occipital lobes. There are some fairly diffuse white matter ischemic change s bilaterally. She is without any complaint of headache, nausea, vomiting, chest pain, shortness of breath or difficulty swallowing. PAST MEDICAL HISTORY: As listed above. ALLERGIES: None. SOCIAL HISTORY: Unremarkable. FAMILY HISTORY: Noncontributory. REVIEW OF SYSTEMS: Otherwise, negative. PHYSICAL EXAMINATION: VITAL SIGNS: Pulse 106, blood pressure 156/98, respirations 25, saturations 95%. HEENT: Pupils are equal and reactive. Conjunctivae are clear. She seems to have a right gaze prefe rence. Oropharynx is clear. NECK: Supple. EXTREMITIES: No cyanosis. NEUROLOGIC: She was awake and cooperative. She was oriented to her name, but otherwise did not know her proper age or where she was located. Her speech seemed to be fluent and clear. Cranial nerve t esting showed a left visual field deficit. Motor exam showed some antigravity movement on the left, but significant neglect of the left side. Plantar responses downgoing on the right, upgoing on the l eft. Gait is not testable. No abnormal movements were seen. IMAGING: EKG showed a sinus rhythm. CT scans were reviewed. SUMMARY: This is an elderly lady, who suffered a probable thrombotic stroke in the right MCA territo ry. She has some posttreatment hemorrhage. She seems to be doing reasonably well, but continues to have deficits. I will follow in her care.
[2017-10-09] MEDS: Atorvastatin Calcium 40 MG TAB PO SCH (20:55)
[2017-10-10] MEDS: Nitroglycerin 2% Ointment 1 INCH/1 GM Packet TOP SCH ×3 (06:23→21:28)
[2017-10-10] MEDS ORDERED: Aspirin 325 MG TAB PO SCH (09:00)
[2017-10-10] MEDS: Famotidine 40 MG/4 ML VIAL SLOW IVP SCH (09:36)
[2017-10-10] MEDS: cefTRIAXone\\ROCEPHIN 1 GM, Syringe 0.4 ML in Sterile Water 9.6 ML SLOW IVP SCH (09:37)
--- NOTE | 2017-10-10 10:59 | PDOC.PN ---
- Subjective Encounter Start Date: 10/10/17 Encounter Start Time: 09:40 Patient seen and examined for nstemi and cva. No new complaints. No overnight events pt is less irritated, arousable, son bedside - Objective Resuscitation Status: Resuscitation Status FULL:Full Resuscitation MAR Reviewed: Yes Vital Signs & Weight: Vital Signs (12 hours) Temp 10/10/17 08:00 98.7 F 10/10/17 04:00 98.5 F 10/10/17 00:00 98.3 F Weight Admit Weight 150 lb Weight 138 lb 14.259 oz Most Recent Monitor Data Heart Rate from ECG 89 NIBP 131/72 NIBP BP-Mean 98 Respiration from ECG 16 SpO2 100 I&O: 10/09/17 10/10/17 10/11/17 06:59 06:59 06:59 Intake Total 513 393 0 Output Total 7 500 2 Balance 506 -107 -2 Result Diagrams: 10/08/17 06:25 10/08/17 06:25 Additional Labs: Accuchecks 10/10/17 10/09/17 10/09/17 06:19 21:39 16:57 POC Glucose 186 H 193 H 225 H EKG Reviewed by me: Yes Phys Exam - Physical Examination Constitutional: NAD HEENT: PERRLA, moist MMs, sclera anicteric Neck: no JVD, supple Respiratory: no wheezing, no rales, no rhonchi Cardiovascular: RRR, no rub SM+ Gastrointestinal: soft, non-tender, no distention, positive bowel sounds Musculoskeletal: no edema, pulses present she is moving all limbs but uanble to do complete exam as pt is going to sleep Lymphatic: no nodes Psychiatric: normal affect Deviation from normal: bruise noted right hand Dx/Plan (1) CVA (cerebral vascular accident) Code(s): I63.9 - CEREBRAL INFARCTION, UNSPECIFIED Status: Acute Qualifiers: CVA mechanism: unspecified Qualified Code(s): I63.9 - Cerebral infarction, unspecified Comment: s/p TPa, then mild haemorrage in basal ganglia (2) NSTEMI (non-ST elevated myocardial infarction) Code(s): I21.4 - NON-ST ELEVATION (NSTEMI) MYOCARDIAL INFARCTION Status: Acute (3) UTI (urinary tract infection) Status: Acute (4) Diabetes type 2, controlled Code(s): E11.9 - TYPE 2 DIABETES MELLITUS WITHOUT COMPLICATIONS Status: Chronic (5) Dyslipidemia Code(s): E78.5 - HYPERLIPIDEMIA, UNSPECIFIED Status: Chronic (6) Hypertension Code(s): I10 - ESSENTIAL (PRIMARY) HYPERTENSION Status: Chronic - Plan cont current plan of care, plan discussed w/ family, marlow catheter, continue antibiotics, PT/OT, social media content manager, speech therapy, DVT proph w/SCDs * will try to get MRI * as she has hamerragic conversion, will hold on aspirin and lovenox for DVT prophylaxis * discussed and updated to son about plan and hospital course * medication reviewed as below * symptomatic treatment * stable enough to transfer to stroke floor * will need rehab * stroke team evaluation. Review of Systems - Review of Systems Other: not reliable as pt is sleepy but she appeared more calm and comfortable - Medications/Allergies Allergies/Adverse Reactions: Allergies Allergy/AdvReac Type Severity Reaction Status Date / Time No Known Drug Allergies Allergy Verified 10/07/17 16:09 Medications: Current Medications Acetaminophen (Tylenol) 650 mg PO Q4H PRN PRN Reason: Headache/Fever or Pain Hydrocodone Bitart/Acetaminophen ([place] 5/325) 1 tab PO Q4H PRN PRN Reason: Moderate Pain (4-6) Al Hydroxide/Mg Hydroxide (Maalox) 30 ml PO Q6H PRN PRN Reason: Heartburn or Indigestion Artificial Tears (Tears Renewed 15ml Bottle) 0 drop EA EYE PRN PRN PRN Reason: Dry Eyes Atorvastatin Calcium (Lipitor) 40 mg PO [facility] Last Admin: 10/09/17 20:55 Dose: Not Given Dextrose/Water (Dextrose 50%) 25 gm SLOW IVP PRN PRN PRN Reason: Hypoglycemia Famotidine (Pepcid) 20 mg SLOW IVP BID [facility] Last Admin: 10/10/17 09:36 Dose: 20 mg Glucagon (Glucagon) 1 mg IM PRN PRN PRN Reason: Hypoglycemia Guaifenesin (Robitussin Sf) 200 mg PO Q4H PRN PRN Reason: Cough Hydralazine HCl (Apresoline) 10 mg SLOW IVP Q4H PRN PRN Reason: Systolic BP > 180 Last Admin: 10/08/17 12:52 Dose: 10 mg Dextrose/Water (D5w) 1,000 mls @ 0 mls/hr IV .Q0M PRN; As Directed PRN Reason: Hypoglycemia Ceftriaxone Sodium 1 gm/ (Syringe 0.4 ml/ Sterile Water) 10 mls @ 120 mls/hr SLOW IVP 0800 [facility] Last Admin: 10/10/17 09:37 Dose: 10 mls Insulin Human Lispro (Humalog) 0 units SC .MODERATE SLIDING SC PRN PRN Reason: Moderate Correctional Scale Last Admin: 10/09/17 17:00 Dose: 4 unit Insulin Human Lispro (Humalog) 0 units SC .BEDTIME SLIDING SC PRN PRN Reason: Bedtime Correctional Scale Last Admin: 10/08/17 21:12 Dose: 5 unit Lisinopril (Zestril) 10 mg PO DAILY [facility] Last Admin: 10/09/17 08:50 Dose: Not Given Loperamide HCl (Imodium) 2 mg PO PRN PRN PRN Reason: Diarrhea/Loose Stools Loratadine (Claritin) 10 mg PO DAILYPRN PRN PRN Reason: Sinus Symptoms Magnesium Hydroxide (Milk Of Magnesium) 30 ml PO DAILYPRN PRN PRN Reason: Constipation Metoprolol Tartrate (Lopressor) 25 mg PO BID [facility] Last Admin: 10/09/17 20:55 Dose: Not Given Metoprolol Tartrate (Lopressor) 5 mg IVP Q4H PRN PRN Reason: Hypertension Last Admin: 10/08/17 23:05 Dose: 5 mg Mineral Oil/White Petrolatum (Eucerin Cream) 0 gm TOP BIDPRN PRN PRN Reason: Dry Skin Nitroglycerin (Nitro-Bid 2% Ointment) 0.5 inch TOP Q8HR [facility] Last Admin: 10/10/17 06:23 Dose: 0.5 inch Nitroglycerin (Nitrostat) 0.4 mg SL Q5MIN PRN PRN Reason: Chest Pain Ondansetron HCl (Zofran Odt) 4 mg PO Q6H PRN PRN Reason: Nausea/Vomiting Ondansetron HCl (Zofran) 4 mg IVP Q6H PRN PRN Reason: Nausea/Vomiting Phenol (Chloraseptic [place] 180 Ml Bot) 0 ml PO PRN PRN PRN Reason: Sore Throat Senna (Senokot) 2 tab PO HSPRN PRN PRN Reason: Constipation Sodium Chloride ([place] Nasal [place] 0.65%) 0 ml EA NARE QIDPRN PRN PRN Reason: Nasal Congestion Sodium Chloride (Flush - Normal Saline) 10 ml IVF Q12HR [facility] Last Admin: 10/09/17 21:34 Dose: 10 ml Sodium Chloride (Flush - Normal Saline) 10 ml IVF PRN PRN PRN Reason: Saline Flush Tramadol HCl (Ultram) 50 mg PO Q6H PRN PRN Reason: Moderate Pain (4-6) Zolpidem Tartrate (Ambien) 5 mg PO HSPRN PRN PRN Reason: Insomnia
[2017-10-10] MEDS: Lisinopril 10 MG TAB PO SCH (11:40)
[2017-10-10] MEDS: Metoprolol Tartrate 25 MG TAB PO SCH ×2 (11:40→21:29)
--- NOTE | 2017-10-10 11:55 | PDOC.CTH ---
Cardiology Progress Note - Subjective She is doing much better. Her mentation is back to normal. - Objective Vital Signs Temp 10/10/17 08:00 98.7 F 10/10/17 04:00 98.5 F 10/10/17 00:00 98.3 F Admit Weight 150 lb Weight 138 lb 14.259 oz 10/09/17 10/10/17 10/11/17 06:59 06:59 06:59 Intake Total 513 393 0 Output Total 7 500 2 Balance 506 -107 -2 - Physical Examination General/Neuro: alert & oriented x3, NAD Neck: no JVD present Lungs: CTA, unlabored respirations Heart: RRR Abdomen: NT/ND Extremities: + edema B (trace) - Telemetry Telemetry Rhythm: NSR - Labs Result Diagrams: 10/08/17 06:25 10/08/17 06:25 Troponin/CKMB CK-MB (CK-2) 6.8 ng/mL (0-6.6) H* 10/08/17 16:38 Troponin I 1.371 ng/mL (< 0.028) H* 10/08/17 16:38 - Assessment/Plan 1. Severe multivessel CAD. 2. Acute CVA 3. S/P TPA 4. Hemorrhagic conversion of CVA. PLAN: - Will have to wait for CABG until Intra parenchymal hemorrhage resolved. - No antiplatelets or anticoagulants for now. - Neurology recommends waiting 48 hrs before initiation of Aspirin. - Continue Statins.
--- NOTE | 2017-10-10 12:01 | PRG ---
DATE OF SERVICE: 10/10/2017 SUBJECTIVE: This morning she is awake, alert, responsive, no pain or discomfort. She is not able to move her left side, but moving her right side. OBJECTIVE: VITAL SIGNS: Blood pressure 131/72, saturations are 100% of 18, pulse 80. CHEST: With no wheezing. CARDIAC: Normal S1, S2, no gallops. ABDOMEN: Soft, no mass. IMPRESSION: 1. Coronary artery disease, 3 vessel. 2. Cerebrovascular accident status post TPA associated with hemorrhage. PLAN: Continue cardiac blood pressure medication and PT We will follow.
[2017-10-10] MEDS: HumaLOG 300 UNITS/3 ML VIAL SC PRN (12:08)
[2017-10-10] MEDS ORDERED: Lorazepam 2 MG/ML VIAL ONE (13:43)
[2017-10-10] MEDS ORDERED: Lorazepam 2 MG/ML VIAL SLOW IVP SCH (14:15)
--- NOTE | 2017-10-10 15:43 | MRI ---
MRI BRAIN WITH AND WITHOUT CONTRAST: Date: 10/10/17 Multiplanar, multisequential imaging of brain obtained. Postcontrast images obtained with administrat ion of 20 mL MultiHance. INDICATION: Intraparenchymal hemorrhage noted post TPA. Correlation made to CT of 10/08/17 which showed a small a harry measuring approximately 6.0 mm in the right basal ganglia. FINDINGS: Current exam shows cortical atrophy. Ventricular size is normal. The area of hemorrhage in the right basal ganglia is again seen and appears to have increased in size. This is isointense on T1 measuring 1.8 cm. There is now a new intraparenchymal hematoma involving the right occipital lobe which measures up to 3.8 cm AP dimension. The gradient echo sequence shows multiple other areas of hemosiderin deposition, all of which are sma ller and many of which may be chronic. These numerous foci are located in both cerebral hemispheres. A large new hematoma in the right occipital lobe appears to extend superiorly into the right parietal lobe and there is surrounding edema. On diffusion images, there are numerous tiny foci of restricted diffusion seen in both cerebellar hem ispheres, as well as both cerebral hemispheres. The largest is seen posterior medial aspect of the le ft temporal lobe. These would be consistent with numerous areas of small infarcts. Embolic phenomenon should be considered. There is a new hematoma in the right cerebellum near the midline and abutting the fourth ventricle me asuring 1.0 cm. There is evidence of another hematoma in the left peripheral parietal lobe which measures approximate ly 1.2 cm. No significant enhancement seen on postcontrast images. IMPRESSION: 1. There is now evidence of multiple scattered hemorrhages in both cerebral hemispheres and in the c erebellum. Gradient echo sequence shows numerous foci, some of which are not apparent on standard seq uences, although there is now a large parenchymal hematoma in the right occipitoparietal lobe, as wel l as small hematoma in the left parietal lobe cortex and the right cerebellum. Recommend repeat CT wi thout contrast. This can better assess areas of new hemorrhage. It will also be helpful for follow-up . 2. There are numerous foci of restricted diffusion seen throughout both cerebral and cerebellar laverne spheres as described above consistent with numerous small infarcts. Given the numerous foci and vascu lar distributions, an embolic phenomenon should be considered. POS: LEW
[2017-10-10] MEDS ORDERED: Famotidine 40 MG/4 ML VIAL SLOW IVP SCH (21:00)
[2017-10-10] MEDS ORDERED: Pantoprazole 40 MG VIAL IVP SCH (21:00)
[2017-10-10] MEDS: Atorvastatin Calcium 40 MG TAB PO SCH (21:29)
--- NOTE | 2017-10-10 23:42 | CT ---
BRAIN CT WITHOUT IV CONTRAST: HISTORY: A 77-year-old female with a history of a head injury following a fall out of bed. COMPARISON: 10/08/2017 FINDINGS: There is some new soft tissue swelling over the left supraorbital region. There are multiple intrapa renchymal hemorrhagic foci noted bilaterally. Many of these are new, and some of these have increase d in size from the prior study of two days ago. There is a new intraparenchymal hemorrhage in the ri ght parietal lobe, measuring approximately 4 cm in diameter. No evidence for subdural or epidural he morrhage. IMPRESSION: 1. Progressive bilateral intraparenchymal hemorrhages, increasing in number and size from the study of 10/08/2017, the largest one measuring approximately 4 cm in the right parietal lobe. 2. Left periorbital soft tissue swelling. 3. No evidence for extraaxial, subdural, or epidural hemorrhage. Findings were discussed with Julia, the patient's nurse, at 2330 hours. CODE CR POS: LEW
--- NOTE | 2017-10-10 23:49 | RAD ---
LEFT HAND THREE VIEWS: HISTORY: A 77-year-old female with a history of a left hand injury following a fall out of bed. FINDINGS: There is bony demineralization. Degenerative changes are noted of the wrist and hand. no evidence f or acute fracture or dislocation. IMPRESSION: Bone demineralization and degenerative changes without fracture or dislocation. POS: LEW
--- NOTE | 2017-10-11 00:51 | PDOC.EVN ---
Event Note - Event Note Event Note: bedside evaluation for cc: pt fell out of bed S: pt has no new c/o, denies any pain, has some recall of falling but does not recall how she fell no SOB, no CP, no QUIGLEY, no dizziness repeat CT head non con and XR L hand reviewed concerning for new hemorrhagic foci physical exam awake, oriented x2, no acute distress, lying in hospital bed, conversant s1, s2, no m/r/g, pulses 2+ b/l UE, no pitting pedal edema no w/r/r, reasonable air mvmt, limited ant exam + bs, soft, non ttp maee plan: progressive cerebral hemorrhage s/p fall d/w neurosurgy pa diamond cleaner plan for neuro check q2h transfer to CCU for closer monitoring repeat CT head non contrast @ 6AM repeat coag, CBC NPO after midnight grossly neurologically at baseline, conversant, following commands, NIH 5 greater than 30 minutes critical care time spent
[2017-10-11 01:17] LABS: #Lymphocytes 0.8 thou/uL (1.20-3.40); #Monocytes 1.2 thou/uL (0.11-0.59); #Neutrophils 13.7 thou/uL (1.40-6.50); %Basophils 0.3 % (0.0-1.0); %Eosinophils 0.2 % (0.0-10.0); %Lymphocytes 5.1 % (21.0-51.0); %Monocytes 7.8 % (0.0-10.0); %Neutrophils 86.6 % (42.0-75.0); Hemoglobin 13.1 g/dL (12.0-16.0); Mean Corpuscular HGB CONC 34.1 g/dL (32.0-36.0); Mean Platelet Volume 8.3 fL (7.4-10.4); Platelet Count 226 thou/uL (130-400); RBC Distribution Width 12.4 % (11.5-14.5); Red Blood Cell (RBC) Count 4.09 mill/uL (4.20-5.40); White Blood Cell (WBC) Count 15.9 thou/uL (4.8-10.8)
[2017-10-11 01:24] LABS: INR-International Normal Ratio 1.2; PTT 31.6 SEC (22.9-36.1); Prothrombin Time 15.7 SEC (12.0-14.7)
[2017-10-11 01:29] VITALS: BP 143/84
[2017-10-11 02:26] VITALS: BMI 25.2
[2017-10-11 04:34] VITALS: TEMP 98.6
--- NOTE | 2017-10-11 06:00 | PDOC.EVN ---
Event Note - Event Note Event Note: Called to bedside due to sanchez sparrow overhead. Per nursing, patient began agonal breathing and became pulseless with no organized rhythm. See code event record for specific times. Epinephrine given soon after start of CPR but IV infiltrated. Took around 6-8 minutes to get IV access for next dose. Pt was intubated with 7.5 tube; 23 cm at teeth. Color change present with bilateral breath sounds. Pt was never shocked due to lack of rhythm requiring electrical intervention. Irregular pulses returned but monitor showed tachycardia in 200s. Magnesium then given due to appearance of torsades on monitor. HR on monitor slowed to 100s-140s. EKG showed A.fib with RVR although rhythm changed many times and was not actually A.fib for majority of code. Pt's son was contacted by [facility] hospitalist and she took over the management. Second code blue called a few minutes later after persistent hypoxia and new bradycardia with loss of pulse. Epinephrine given again and CPR resumed. Pt's son contacted about the situation and requested to stop the code. Stopped interventions at 0546. See hospitalist note for more information.
--- NOTE | 2017-10-11 08:28 | RAD ---
CHEST S 2 VIEWS: Date: 10/11/17 HISTORY: Status post intubation and CPR. COMPARISON: 10/08/17. FINDINGS: There is calcification of the mitral annulus and atherosclerosis of the aorta. Heart size normal. Pul monary vessels and hilum are normal. Costophrenic angles are clear. No consolidation or mass. No pneu mothorax or osseous abnormalities. Endotracheal tube extends beyond the level of the clavicles. IMPRESSION: 1. Atherosclerosis. 2. Calcification mitral annulus. 3. ET tube as above. POS: LEW
--- NOTE | 2017-10-11 08:48 | DS ---
DISCHARGE DIAGNOSES: At the time of this dictation the patient is , this may be used as a de ath summary as needed. 1. Jrb-[id number] elevation myocardial infarction, status post left heart catheterization demonstrat ing diffuse coronary artery disease. 2. Status post initial ischemic cerebrovascular accident for which tPA was given, and subsequent hem orrhagic conversion. 3. Status post fall. 4. Multiple intracerebral hemorrhages largest on last known imaging 4 cm. 5. 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 6. Status post cardiac arrest with pulseless electrical activity. 7. Urinary tract infection. BRIEF SUMMARY OF HOSPITAL COURSE: This was a 77-year-old female who initially presented with chief c omplaint of left arm pain. She had a prior known history of coronary artery disease, diabetes, hyper tension, hyperlipidemia. Please see the original history and physical for full details surrounding h er admission. The patient was initially admitted with a working active diagnosis of an NSTEMI and se en by Cardiology. She underwent a left heart catheterization showing severe multivessel disease and Cardiovascular Surgery was consulted for consideration of coronary artery bypass grafting. However, patient subsequently developed neurological defects. Patient was evaluated by the Stroke Team and de cision was made to initiate tPA. Unfortunately, before tPA was administered the patient had both a C T of the brain and CTA of the brain that were essentially negative. Unfortunately, post-tPA the sridevi ent had small intracerebral hemorrhages. These were described on an MRI as scattered throughout both cerebral hemispheres and the cerebellum including parenchymal hematoma in the right occipitoparietal lobe. Given the pattern on MRI, there was concern for possible embolic phenomenon. Patient was act ually neurologically stable throughout this, but unfortunately sustained a mechanical fall where she was found on the ground on 10/10/2017. Repeat CT at that point in time of the head demonstrated prog ressive bilateral intraparenchymal hemorrhages, increasing in both number and size of the largest cristina roximately 4 cm in the right parietal lobe. The patient was subsequently moved back to the ICU for c loser evaluation and Neurosurgery was consulted. The patient maintained stable neurological serial e xaminations. Patient was first noted to have agonal breathing and subsequently progressed to PEA. R etrospective review of her telemetry strips also indicate that the patient had a component of bradyca rdia accompanying the onset of her cardiac arrest. The patient underwent the first code blue event w hich was 20+ minutes, please see the code record for further details. The patient was intubated and with regain of spontaneous circulation. However, within a half hour the patient had a subsequent rep eat loss of pulses and hypoxia despite ventilator support. A discussion was had with the patient's f terri who opted to stop resuscitative efforts and make the patient a do not code. CPR was subsequent ly stopped during the second cardiac arrest and the patient passed. I have discussed the above with the patient's son Young over the phone.
--- NOTE | 2017-10-11 12:38 | EKG ---
Test Reason : Blood Pressure : / mmHG Vent. Rate : 075 BPM Atrial Rate : 075 BPM P-R Int : 142 ms QRS Dur : 086 ms QT Int : 440 ms P-R-T Axes : 061 024 052 degrees QTc Int : 491 ms Normal sinus rhythm Nonspecific ST abnormality Prolonged QT Abnormal ECG When compared with ECG of 07-OCT-2017 13:20, (Unconfirmed) No significant change was found Confirmed by DR. Alf HAMLIN ([id number]) on 10/11/2017 12:38:12 PM Referred By: MIGUELITO Confirmed By:DR. Alf HAMLIN
[2017-10-12] MEDS ORDERED: Magnesium 5 GM/10 ML Abboject SYRINGE ONE (13:40)
[2017-10-12] MEDS ORDERED: Atropine Sulfate 1 mg/10 ml Syringe ONE (13:40)
[2017-10-12] MEDS ORDERED: EPINEPHrine 1 MG/10 ML Abboject SYRINGE ONE (13:40)
--- NOTE | 2017-10-12 14:29 | EKG ---
Test Reason : Blood Pressure : / mmHG Vent. Rate : 249 BPM Atrial Rate : 080 BPM P-R Int : 000 ms QRS Dur : 162 ms QT Int : 198 ms P-R-T Axes : 000 -85 061 degrees QTc Int : 403 ms Probable Atrial fibrillation with rapid ventricular response with premature ventricular or aberrantl y conducted complexes Left axis deviation Non-specific intra-ventricular conduction block Inferior infarct , new Anterior injury pattern ACUTE AL / STEMI Abnormal ECG When compared with ECG of 08-OCT-2017 16:04, (Unconfirmed) Atrial fibrillation has replaced Sinus rhythm Vent. rate has increased BY 174 BPM Questionable change in QRS duration Acute Inferior infarct is now Present Confirmed by DR. Yahir ARELLANO ([id number]) on 10/12/2017 2:28:52 PM Referred By: MIGUELITO Confirmed By:DR. Yahir ARELLANO
== END 2017-10-11 05:45 | disposition expired ==
LOC: ERS 13:10 → 2NO 14:00 → CCU 10-08 16:45 → 2SE 10-10 12:46 → CCU 10-11 01:43
PROVIDERS: ADMIT Internal Medicine; ATTEND Internal Medicine
PROC: 3E03317 Introduction of Other Thrombolytic into Peripheral Vein, Percutaneous Approach (ICD-10-PCS; principal; 2017-10-08)
PROC: 4A023N7 Measurement of Cardiac Sampling and Pressure, Left Heart, Percutaneous Approach (ICD-10-PCS; 2017-10-08)
PROC: B2111ZZ Fluoroscopy of Multiple Coronary Arteries using Low Osmolar Contrast (ICD-10-PCS; 2017-10-08)
PROC: 0BH17EZ Insertion of Endotracheal Airway into Trachea, Via Natural or Artificial Opening (ICD-10-PCS; 2017-10-11)
PROC: 5A1935Z Respiratory Ventilation, Less than 24 Consecutive Hours (ICD-10-PCS; 2017-10-11)
DX: I21.4 Non-ST elevation (NSTEMI) myocardial infarction (principal); I63.311 Cerebral infarction due to thrombosis of right middle cerebral artery; I61.4 Nontraumatic intracerebral hemorrhage in cerebellum; N39.0 Urinary tract infection, site not specified; R47.01 Aphasia; I25.10 Atherosclerotic heart disease of native coronary artery without angina pectoris; E11.9 Type 2 diabetes mellitus without complications; I10 Essential (primary) hypertension; E78.5 Hyperlipidemia, unspecified; G43.909 Migraine, unspecified, not intractable, without status migrainosus; R29.810 Facial weakness; I46.9 Cardiac arrest, cause unspecified; R00.1 Bradycardia, unspecified; Z66 Do not resuscitate; W19.XXXA Unspecified fall, initial encounter
CPT/HCPCS: 36415; 36416; 70450; 70496; 70498; 70553; 71045; 80048; 80053; 80061; 81001; 82550; 82553; 83036; 84484; 85025; 85610; 85730; 93005; 93010; 93306; 93458; 93798; 94002; 94760; 96372; 99152; 99153; A4216; C1769; C9113; G8978-GP-CL; G8979-GP-CK; G9162-GN-CN; G9163-GN-CL; J0360; J0696; J1644; J1650; J2001; J2060; J2250; J2997; Q0162